=== PATIENT | male | born 1980 | race Caucasian/White ===

== ENCOUNTER 2020-09-26 18:08 | Emergency (ER) | payer OTHER ==
[~2020-09-26] VITALS: Ht 188 cm; Wt 158.8 kg
[~2020-09-26 18:08] MED LIST: AMOXICILLIN 50500 M1 PO; FLEXERIL PO; IBUPROFEN 800800 M1 PO; LODINE XL400 MG PO; MULTIVITAMINS PO; NORCO 5-325 TA1 EACH PO; PRILOSEC 20 MG20 MG PO
[2020-09-26] MEDS ORDERED: SUPER THERAVIT1 EACH PO (18:30)
[2020-09-26] MEDS ORDERED: VITAMIN D31250 MC1 PO (18:30)
[2020-09-26] MEDS ORDERED: ZINC SULFATE220 MG PO (18:31)
[2020-09-26] MEDS ORDERED: VITAMIN C1000 MG PO (18:31)
[2020-09-26 18:54] LABS: ABSOLUTE LYMPHOCYTES 1.2 thou/uL (0.8-5.3); ABSOLUTE MONOCYTES 0.5 thou/uL (0.0-1.2); ABSOLUTE NEUTROPHILS 2.4 thou/uL (1.6-8.1); BASOPHILS 0.5 %; EOSINOPHILS 0.2 %; HEMATOCRIT 41.7 % (42.0-52.0); HEMOGLOBIN 14.3 gm/dL (14.0-18.0); LYMPHOCYTES 29.4 %; MCH 30.1 pg (26.0-34.0); MCHC 34.4 g/dL (28.0-37.0); MCV 87.6 fL (80.0-100.0); MONOCYTES 13.2 %; MPV 7.3 fl. (7.2-11.1); NUCLEATED RBCS 0 /100WBC; PLATELET COUNT* 200 thou/uL (150-400); POLYS 56.7 %; RBC 4.76 mil/uL (4.50-6.00); RDW-CV 12.9 % (10.5-14.5); WBC 4.1 thou/uL (4.0-11.0)
[2020-09-26 19:02] LABS: CALCIUM 8.2 mg/dL (8.5-10.1); POTASSIUM 4.1 mmol/L (3.5-5.1)
[2020-09-26 19:11] LABS: PROTIME 10.6 Seconds (9.20-11.50)
[2020-09-26 19:13] LABS: ALBUMIN 3.2 g/dL (3.4-5.0); TOTAL BILIRUBIN 0.3 mg/dL (<0.1-1.0); TOTAL PROTEIN 7.4 g/dL (6.4-8.2)
[2020-09-26] MEDS ORDERED: PREDNISONE 20 M20 MG PO (20:21)
[2020-09-26] MEDS ORDERED: ZPAK PO (20:21)
[2020-09-26] MEDS ORDERED: VENTOLIN HFA 1818 GM INH (20:21)
[2020-09-26] MEDS ORDERED: ZOFRAN ODT4 MG PO (20:21)
[2020-09-26 21:20] VITALS: BP 135/70
--- NOTE | 2020-09-27 12:08 | EKG ---
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: [facility] : 1980 Requested By: Shanna Cristobal Order Number: [id number] MD: Aston Salas Measurements Intervals [place] Rate: 97 P: 48 ME: 153 QRS: 31 QRSD: 82 T: 27 QT: 320 QTc: 407 Interpretive Statements Sinus rhythm Baseline wander in lead(s) V1 No previous ECG available for comparison Electronically Signed On 09-27-2020 12:08:04 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
== END 2020-09-26 21:20 | disposition home or self-care (01) ==
LOC: M.ERS 18:08
PROVIDERS: Nurse Practitioner Family
DX: J84.9 Interstitial pulmonary disease, unspecified (principal); Z20.828 Contact with and (suspected) exposure to other viral communicable diseases; E66.9 Obesity, unspecified; Z88.5 Allergy status to narcotic agent; Z88.8 Allergy status to other drugs, medicaments and biological substances; Z79.899 Other long term (current) drug therapy